=== PATIENT | male | born 1995 | race Caucasian/White ===

== ENCOUNTER 2016-11-11 21:52 | Emergency (ER) | payer MEDICAID ==
[~2016-11-11] VITALS: Ht 170.2 cm; Wt 77.1 kg
[2016-11-11 22:00] VITALS: BP_SYST 123
--- NOTE | 2016-11-11 22:00 | NUR ---
Patient to ER bed 1 to gown for evaluation. Side rails up. Report given to DON LEMUS.
--- NOTE | 2016-11-11 22:11 | NUR ---
Pt awake alert. Pt stated from yesterday he was coughing and this mornign while he was coughing he had pain on the left and right flank pain. Pt's mother at bedside. Pt stable. lynn continue to monitor
--- NOTE | 2016-11-11 22:19 | NUR ---
ER at bedside examining patient.
[2016-11-11] MEDS ORDERED: PROMETHAZINE 6.25 MG/ CODEINE 10 MG/ 5 ML PO ONE (23:00)
[2016-11-11 23:17] VITALS: BP_SYST 114
--- NOTE | 2016-11-11 23:17 | NUR ---
Patient given written and verbal discharge instructions and verbalizes understanding. ER MD discussed with patient the results and treatment provided. Given copies of tests performed in ER. Patient in stable condition. ID arm band removed. Rx of promethzine with codine 6.25mg-10mg/5ml 10ml every six hours as needed and ibuprofen 600mg 1 tab every 6 hours as needed given. Patient educated on pain management and to follow up with PMD. Pain Scale 0/10. Opportunity for questions provided and answered.
== END 2016-11-11 23:17 | disposition home or self-care (01) ==
LOC: SED 21:52
DX: J20.8 Acute bronchitis due to other specified organisms (principal); Z88.0 Allergy status to penicillin
CPT/HCPCS: 71020-TC; 99284

== ENCOUNTER 2018-04-09 02:12 | Emergency (ER) | payer BC, MEDICAID ==
[~2018-04-09] VITALS: Ht 170.2 cm; Wt 80.3 kg
[2018-04-09 02:12] VITALS: BP_SYST 159
--- NOTE | 2018-04-09 02:12 | NUR ---
Placed in room 06 . Placed on shared services representative, blood pressure machine and pulse oximeter. To gown for exam. Side rails up. Report given to DON Collins.
--- NOTE | 2018-04-09 02:14 | NUR ---
FARZANEH Freeman at bedside examining patient.
[2018-04-09] MEDS ORDERED: DIPHENHYDRAMINE INJ 50 MG/ML VIAL IVP ONE (02:15)
[2018-04-09] MEDS ORDERED: NACL 0.9% 1,000 ML IV ONE (02:15)
[2018-04-09] MEDS ORDERED: methylPREDNISolone SOD SUCC/PF 62.5 MG/ML VIAL IVP ONE (02:15)
--- NOTE | 2018-04-09 02:15 | NUR ---
Patient AAO x4 sitting in bed breathing heavy, c/o SOB sudden onset. Patient c/o tingling and tightness to his chest and feeling lightheaded. Patient states he has history of anxiety/panic attacks. Patient denies drug use, state he had 1 beer tonight at a [employer] game. Will continue to monitor.
[2018-04-09 02:38] LABS: ANION GAP 16 (5-15); CALCIUM 9.4 mg/dL (8.4-11.0); CHLORIDE 102 mmol/L (98-107); CREATININE 1.05 mg/dL (0.55-1.30); GLUCOSE 116 mg/dL (70-99); POTASSIUM 3.3 mmol/L (3.5-5.1); SODIUM SERUM 143 mmol/L (136-145); UREA NITROGEN, BLOOD 11 mg/dL (8-21)
[2018-04-09 02:39] LABS: BASOPHILS # (AUTO) 0.2 K/uL (0.0-0.2); BASOPHILS % (AUTO) 1.9 % (0.0-2.0); EOSINOPHILS # (AUTO) 0.1 K/uL (0.0-0.4); HEMATOCRIT 50.9 % (36-54); HEMOGLOBIN 17.5 g/dL (14.0-18.0); LYMPHOCYTES % (AUTO) 21.5 % (20.5-51.5); MEAN CORPUSCULAR HEMOGLOBIN 32 pg (27-31); MEAN CORPUSCULAR HGB CONC 34 % (32-36); MEAN CORPUSCULAR VOLUME 94 fL (79.0-98.0); MONOCYTES # (AUTO) 0.9 K/uL (0.0-1.0); MONOCYTES % (AUTO) 9.4 % (1.7-9.3); NEUTROPHILS # (AUTO) 5.9 K/uL (1.8-7.7); NEUTROPHILS % (AUTO) 66.2 % (40.0-70.0); PLATELET COUNT (AUTO) 251 K/uL (130-430); RED BLOOD CELL COUNT(AUTO) 5.44 MIL/uL (4.2-6.2); RED CELL DISTRIBUTION WIDTH 12.2 % (9.0-15.0); WHITE BLOOD COUNT (AUTO) 9.1 K/uL (4.8-10.8)
[2018-04-09 02:44] LABS: ALANINE AMINOTRANSFERASE 69 U/L (12-78); ALBUMIN 4.6 g/dL (3.4-4.8); ASPARTATE AMINOTRANSFERASE 29 U/L (10-37); TOTAL BILIRUBIN 0.6 mg/dL (0.0-1.0)
[2018-04-09 02:54] LABS: ALCOHOL, BLOOD < 3 mg/dL (<10); GFR AFRICAN AMERICAN 113 mL/min (>90)
[2018-04-09 03:03] VITALS: BP_SYST 135
--- NOTE | 2018-04-09 03:03 | NUR ---
Patient given written and verbal discharge instructions and verbalizes understanding. ER MD discussed with patient the results and treatment provided. Patient in stable condition. ID arm band removed. No Rx given. Patient educated on pain management and to follow up with PMD. Pain Scale 0/10 . Opportunity for questions provided and answered. Medication side effect fact sheet provided.
[2018-04-09 03:04] LABS: BILIRUBIN,URINE NEGATIVE (NEGATIVE); BLOOD, URINE NEGATIVE (NEGATIVE); CLARITY/URINE CLEAR (CLEAR); COLOR,URINE YELLOW (YELLOW); GLUCOSE,URINE NEGATIVE (NEGATIVE); KETONES,URINE TRACE (NEGATIVE); LEUKOCYTE ESTERASE ,URINE NEGATIVE (NEGATIVE); NITRITE, URINE NEGATIVE (NEGATIVE); PROTEIN URINE NEGATIVE (NEGATIVE)
[2018-04-09 03:16] LABS: BARBITURATE, URINE NEGATIVE (NEG <=200); BENZODIAZEPINE, URINE NEGATIVE (NEG <=150); CANNABINOID, URINE NEGATIVE (NEG <=50); COCAINE, URINE NEGATIVE (NEG <=150); METHAMPHETAMINES SCREEN,URINE NEGATIVE (NEG <=500); OPIATE, URINE NEGATIVE (NEG <=100); PHENCYCLIDINE SCREEN,URINE NEGATIVE (NEG <=25); UR TRICYCLIC ANTIDEPRESSANTS NEGATIVE (NEG <=300); URINE AMPHETAMINE NEGATIVE (NEG <=500); URINE METHADONE NEGATIVE (NEG <=200); URINE OXYCODONE SCREEN NEGATIVE (NEG <=100); URINE PROPOXYPHENE SCREEN NEGATIVE (NEG <=300)
== END 2018-04-09 03:03 | disposition home or self-care (01) ==
LOC: SED 02:12
DX: F41.9 Anxiety disorder, unspecified (principal); R06.02 Shortness of breath; R07.89 Other chest pain; Z88.0 Allergy status to penicillin
CPT/HCPCS: 36415; 71045; 80053; 80307; 81003; 85025; 85379; 96361; 96374; 96375; 99285; G0482; J1200; J2930; J7030; 93005